=== PATIENT | female | born 1985 | race African-American/Black ===

== ENCOUNTER 2017-07-04 07:33 | Inpatient (IN) | payer OTHER ==
[~2017-07-04] VITALS: Ht 154.9 cm; Wt 86.8 kg
[2017-07-04] MEDS ORDERED: LACTATED RINGERS 1,000 ML IV SCH (12:36)
[2017-07-04] MEDS ORDERED: OXYTOCIN 30U/ 0.9% NaCL 500ML 500 ML IV SCH (12:36)
[2017-07-04 12:39] VITALS: BP 117/65
[2017-07-04] MEDS ORDERED: METOCLOPRAMIDE 5 MG/ML, 2ML ONE ×2 (12:56→14:13)
[2017-07-04] MEDS ORDERED: SODIUM CITRATE/CITRIC ACID 30 ML UDC ONE ×2 (12:56→14:13)
[2017-07-04] MEDS ORDERED: NEWBORN KIT ONE (12:56)
[2017-07-04] MEDS ORDERED: CALCIUM CARBONATE 500 MG TAB.CHEW PO PRN (13:00)
[2017-07-04] MEDS ORDERED: PLEASE ENTER HEIGHT AND WEIGHT MC SCH (13:00)
[2017-07-04] MEDS ORDERED: METOCLOPRAMIDE 5 MG/ML, 2ML IV ONE (13:00)
[2017-07-04] MEDS ORDERED: SODIUM CITRATE/CITRIC ACID 30 ML UDC PO ONE (13:00)
[2017-07-04] MEDS ORDERED: LACTATED RINGERS 1,000 ML IVBOLUS ONE (13:00)
[2017-07-04] MEDS ORDERED: ONDANSETRON 2MG/ML, 2ML IVPush ONE (13:00)
[2017-07-04] MEDS ORDERED: OXYTOCIN 30U/ 0.9% NaCL 500ML 500 ML ONE (13:24)
[2017-07-04] MEDS ORDERED: KETOROLAC 30 MG/1 ML ONE (14:13)
[2017-07-04] MEDS ORDERED: LIDOCAINE 1%, 20ML ONE (14:13)
[2017-07-04] MEDS ORDERED: EPHEDRINE 50 MG/ML, 1ML ONE (14:13)
[2017-07-04] MEDS ORDERED: CEFAZOLIN 1,000 MG ONE (14:13)
[2017-07-04] MEDS ORDERED: FENTANYL PF 100 MCG/2ML ONE ×3 (16:13→17:17)
[2017-07-04] MEDS: OXYTOCIN 30U/ 0.9% NaCL 500ML 500 ML IV SCH (16:13)
[2017-07-04] MEDS: LACTATED RINGERS 1,000 ML IV SCH ×2 (16:13→17:39)
[2017-07-04] MEDS: FENTANYL PF 100 MCG/2ML IVPush PRN ×5 (16:20→17:25)
[2017-07-04] MEDS ORDERED: OXYcodone/APAP 5/325MG TABLET PO PRN (16:30)
[2017-07-04] MEDS ORDERED: DIPH,PERTUSS(ACELL),TET VAC/PF NC IM-VACC PRN (16:30)
[2017-07-04] MEDS ORDERED: MISOPROSTOL 200 MCG TABLET PR PRN (16:30)
[2017-07-04] MEDS ORDERED: METHYLERGONOVINE 0.2 MG/ML IM PRN (16:30)
[2017-07-04] MEDS ORDERED: ONDANSETRON 2MG/ML, 2ML IV PRN (16:30)
[2017-07-04] MEDS ORDERED: morphine SULFATE 10 MG/ML, 1ML IVPush PRN (16:30)
[2017-07-04] MEDS ORDERED: morphine SULFATE 10 MG/ML, 1ML ONE ×2 (17:17→18:10)
[2017-07-04] MEDS: morphine SULFATE 10 MG/ML, 1ML IVPush PRN ×4 (17:25→18:14)
[2017-07-04 18:00] VITALS: BP 128/71
[2017-07-04] MEDS: OXYcodone IR 5MG TABLET PO PRN (18:37)
[2017-07-04 19:55] VITALS: BP 110/64
[2017-07-04] MEDS: DOCUSATE 100 MG CAPSULE PO PRN (21:14)
[2017-07-04] MEDS: IBUPROFEN 800 MG TABLET PO PRN (21:14)
[2017-07-04 23:50] VITALS: BP 110/57
[2017-07-05] MEDS: LACTATED RINGERS 1,000 ML IV SCH ×6 (00:13→22:13)
[2017-07-05] MEDS: OXYcodone IR 5MG TABLET PO PRN ×6 (01:07→20:58)
[2017-07-05] MEDS: ACETAMINOPHEN 325 MG TABLET PO PRN ×2 (01:07→08:50)
[2017-07-05] MEDS: OXYTOCIN 30U/ 0.9% NaCL 500ML 500 ML IV SCH ×3 (02:13→22:13)
[2017-07-05 04:49] VITALS: BP 104/63
[2017-07-05] MEDS: IBUPROFEN 800 MG TABLET PO PRN ×3 (04:49→21:47)
[2017-07-05 06:50] VITALS: BP 100/59
[2017-07-05] MEDS: DOCUSATE 100 MG CAPSULE PO PRN ×2 (08:51→20:34)
[2017-07-05] MEDS: PRENATAL VIT/IRON/FA 1 EACH TABLET PO SCH (08:51)
[2017-07-05 11:50] VITALS: BP 99/60
[2017-07-05 19:30] VITALS: BP 105/61
[2017-07-06] MEDS: LACTATED RINGERS 1,000 ML IV SCH ×5 (00:13→18:13)
[2017-07-06] MEDS: OXYcodone IR 5MG TABLET PO PRN ×5 (03:02→21:35)
[2017-07-06] MEDS: IBUPROFEN 800 MG TABLET PO PRN ×2 (06:31→17:06)
[2017-07-06] MEDS: DOCUSATE 100 MG CAPSULE PO PRN ×2 (07:52→21:35)
[2017-07-06] MEDS: PRENATAL VIT/IRON/FA 1 EACH TABLET PO SCH (07:52)
[2017-07-06 08:00] VITALS: BP 103/65
[2017-07-06] MEDS: OXYTOCIN 30U/ 0.9% NaCL 500ML 500 ML IV SCH ×3 (08:13→19:30)
[2017-07-06 19:30] VITALS: BP 108/62
[2017-07-06] MEDS ORDERED: METHYLERGONOVINE 0.2 MG/ML IM PRN (19:30)
[2017-07-06] MEDS ORDERED: OXYcodone/APAP 5/325MG TABLET PO PRN (19:30)
[2017-07-06] MEDS ORDERED: MISOPROSTOL 200 MCG TABLET PR PRN (19:30)
[2017-07-06] MEDS ORDERED: ONDANSETRON 2MG/ML, 2ML IV PRN (19:30)
[2017-07-07] MEDS: LACTATED RINGERS 1,000 ML IV SCH ×2 (00:13→04:13)
[2017-07-07] MEDS: OXYcodone IR 5MG TABLET PO PRN ×3 (01:41→12:31)
[2017-07-07] MEDS: IBUPROFEN 800 MG TABLET PO PRN ×2 (01:41→11:05)
[2017-07-07] MEDS: OXYTOCIN 30U/ 0.9% NaCL 500ML 500 ML IV SCH (05:30)
[2017-07-07] MEDS ORDERED: IBUP800T PO (07:38)
[2017-07-07] MEDS ORDERED: OXYC-302 PO (07:38)
[2017-07-07] MEDS ORDERED: FERR325T10 PO (07:39)
[2017-07-07] MEDS ORDERED: DOCU-30 PO (07:39)
[2017-07-07] MEDS ORDERED: PREN1TAB28 PO (07:45)
[2017-07-07] MEDS ORDERED: CALC500T PO (07:46)
[2017-07-07] MEDS: PRENATAL VIT/IRON/FA 1 EACH TABLET PO SCH (08:26)
[2017-07-07] MEDS: DOCUSATE 100 MG CAPSULE PO PRN (08:26)
[2017-07-07 09:00] VITALS: BP 109/71
== END 2017-07-07 13:15 | disposition home or self-care (01) | DRG 766 ==
LOC: LDIP 12:04 → 2NW 18:00
PROVIDERS: ADMIT Obstetrics & Gynecology; ATTEND Obstetrics & Gynecology
PROC: 10D00Z1 Extraction of Products of Conception, Low, Open Approach (ICD-10-PCS; principal; 2017-07-04)
PROC: 0UB70ZZ Excision of Bilateral Fallopian Tubes, Open Approach (ICD-10-PCS; 2017-07-04)
DX: O34.211 Maternal care for low transverse scar from previous cesarean delivery (principal); D64.9 Anemia, unspecified; O90.81 Anemia of the puerperium; Z37.0 Single live birth; Z3A.39 39 weeks gestation of pregnancy; Z30.2 Encounter for sterilization; Z23 Encounter for immunization
CPT/HCPCS: 36415; 85025; 85610; 85730; 86850; 86900; 88302; 90715; J0690; J1885; J3010; J3490; J2270; J2590; J2765; J7120